=== PATIENT | female | born 1990 | race American Indian/Alaskan Native ===

== ENCOUNTER 2020-08-28 13:10 | Outpatient (CLI) | payer OTHER ==
--- NOTE | 2020-08-28 14:53 | XRay Report ---
LUMBAR SPINE 3 VIEWS INDICATION: LOW BACK PAIN COMPARISON: None. FINDINGS: No acute, displaced fracture is seen. Alignment is within normal limits. Disc space height is maintained. No significant degenerative changes. CONCLUSION: 1. No acute findings. Signer Name: Jason Naik MD Signed: 08/28/2020 2:49 PM Workstation Name: [id number]
== END 2020-08-28 13:11 | disposition home or self-care (01) ==
LOC: SPVIMAG 13:10
PROVIDERS: ATTEND Urology
DX: M54.5 Low back pain (principal)
CPT/HCPCS: 72100